=== PATIENT | female | born 1970 | race Caucasian/White ===

== ENCOUNTER → 2021-07-27 | Outpatient (CLI) | payer OTHER | LOC: KOH-I 07-25 09:45 | DX: R93.7 Abnormal findings on diagnostic imaging of other parts of musculoskeletal system (principal); C50.812 Malignant neoplasm of overlapping sites of left female breast; R93.2 Abnormal findings on diagnostic imaging of liver and biliary tract; C78.7 Secondary malignant neoplasm of liver and intrahepatic bile duct; M51.36 Other intervertebral disc degeneration, lumbar region; M48.061 Spinal stenosis, lumbar region without neurogenic claudication; M47.817 Spondylosis without myelopathy or radiculopathy, lumbosacral region | CPT/HCPCS: 72148; 73721 ==